=== PATIENT | female | born 1970 | race African-American/Black ===

== ENCOUNTER 2018-04-07 00:56 | Emergency (ER) | payer BC ==
[~2018-04-07] VITALS: Ht 167.6 cm; Wt 80.0 kg
[2018-04-07] MEDS ORDERED: NAPROSYN500 MG PO (01:42)
[2018-04-07 02:04] VITALS: BP 133/88
== END 2018-04-07 02:25 | disposition home or self-care (01) | DRG 554 ==
LOC: ED 00:56
DX: M19.032 Primary osteoarthritis, left wrist (principal); R50.9 Fever, unspecified; M25.532 Pain in left wrist; X50.3XXA Overexertion from repetitive movements, initial encounter; Y93.89 Activity, other specified

== ENCOUNTER 2024-05-06 01:19 | Emergency (ER) | payer OTHER ==
[~2024-05-06] VITALS: Ht 167.6 cm; Wt 81.0 kg
[~2024-05-06 01:19] MED LIST: NAPROSYN500 MG PO
[2024-05-06] MEDS ORDERED: GABAPENTIN600 MG PO (01:43)
[2024-05-06] MEDS ORDERED: PENicillin V POTASSIUM 500 MG/TAB PO ONE (01:45)
[2024-05-06] MEDS ORDERED: VECURONIUM BROMIDE 1 MG/ML IV ONE (01:45)
[2024-05-06] MEDS ORDERED: KETOROLAC TROMETHAMINE 30 MG/ML SDV IM ONE (01:45)
[2024-05-06] MEDS ORDERED: TRAMADOL HYDROC50 M1 PO (01:49)
[2024-05-06] MEDS ORDERED: MOTRIN800 MG PO (01:49)
[2024-05-06] MEDS ORDERED: PENICILLN VK500 M1 PO (01:49)
[2024-05-06] MEDS ORDERED: HYDROcodone 7.5 MG/Acetaminophen 325 MG/COMBO PO ONE (01:55)
[2024-05-06 02:15] VITALS: BP 138/89
== END 2024-05-06 02:15 | disposition home or self-care (01) | DRG 159 ==
LOC: ED 01:19
DX: K02.9 Dental caries, unspecified (principal)